=== PATIENT | female | born 1980 | race Two or more races ===

== ENCOUNTER 2019-08-29 18:45 | Emergency (ER) | payer OTHER ==
[~2019-08-29] VITALS: Ht 157.5 cm; Wt 52.2 kg
[2019-08-29 18:49] VITALS: BP 119/63
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
[2019-08-29] MEDS ORDERED: IBUPROFEN600 MG ORAL (19:07)
[2019-08-29] MEDS ORDERED: LIDODERM700 M1 TOPIC (19:07)
[2019-08-29] MEDS ORDERED: ROBAXIN-500MG ORAL (19:07)
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
--- NOTE | 2019-08-29 19:13 | NUR ---
ER DISCHARGE NOTE: Patient is being discharged from medical care. D/C instruction/prescription given to patient. All questions were answered. Ambulated out with steady gait with all her belongings.
== END 2019-08-29 19:14 | disposition home or self-care (01) ==
LOC: EMR 19:00
DX: S16.1XXA Strain of muscle, fascia and tendon at neck level, initial encounter (principal); S29.012A Strain of muscle and tendon of back wall of thorax, initial encounter; V43.62XA Car passenger injured in collision with other type car in traffic accident, initial encounter; Y92.411 Interstate highway as the place of occurrence of the external cause
CPT/HCPCS: 99282